=== PATIENT | female | born 1980 | race Caucasian/White ===

== ENCOUNTER → 2022-05-16 13:00 | Outpatient (CLI) | payer BC, SELFPAY ==
--- NOTE | ~2022-05-16 | MM_ITS ---
EXAMINATION: MM screening blake BI w juwan HISTORY: Screening TECHNIQUE: Craniocaudal and mediolateral oblique 3-D tomosynthesis images were obtained and synthetic 2-D images were generated. CAD analysis was submitted and interpreted. COMPARISON: 06/11/2019 BREAST PARENCHYMAL COMPOSITION: There are scattered areas of fibroglandular density. FINDINGS: There is no evidence of suspicious mass, calcification, or architectural distortion to sugg est malignancy in either breast. There has been no suspicious interval change. IMPRESSION: 1. No mammographic evidence of malignancy. 2. Recommend routine screening mammography in one year. BI-RADS Category 1: Negative Reviewed, dictated and finalized at location B. T ATTENDANT
== END ==
PROVIDERS: PCP Nurse Practitioner; Visit Provider Nurse Practitioner
DX: Z12.31 Encounter for screening mammogram for malignant neoplasm of breast (principal)
CPT/HCPCS: 77063; 77067

== ENCOUNTER 2022-06-19 08:00 | Outpatient (CLI) | payer OTHER, SELFPAY ==
--- NOTE | 2022-06-19 08:20 | ECG_ITS ---
Measurements Intervals [place] Rate: 66 P: 40 UT: 143 QRS: -20 QRSD: 114 T: 2 QT: 384 QTc: 404 Interpretive Statements SINUS RHYTHM INCOMPLETE RIGHT BUNDLE BRANCH BLOCK VOLTAGE CRITERIA FOR LVH BORDERLINE R WAVE PROGRESSION, ANTERIOR LEADS BORDERLINE T WAVE ABNORMALITY- INFERIOR LEADS BASELINE ARTIFACT- I, II, III, AVR, AVL, AVF BORDERLINE ECG NO PREVIOUS ECG AVAILABLE FOR COMPARISON Electronically Signed On 06-19-2022 8:40:37 RECONSTRUCTIVE DENTIST by Behzad Cornejo D.O.
[2022-06-19 08:57] LABS: Hematocrit 41.7 % (37.0-47.0); Hemoglobin 13.6 g/dL (12.0-15.0)
== END 2022-06-19 08:01 | disposition home or self-care (01) ==
PROVIDERS: Anesthesiology; PCP Nurse Practitioner; Visit Provider Surgery Plastic and Reconstructive Surgery
DX: Z01.810 Encounter for preprocedural cardiovascular examination (principal); Z01.812 Encounter for preprocedural laboratory examination; Z41.1 Encounter for cosmetic surgery; I45.10 Unspecified right bundle-branch block
CPT/HCPCS: 36415; 85014; 85018; 93005

== ENCOUNTER 2022-06-20 00:48 | Day surgery (SDC) | payer OTHER, SELFPAY ==
[2022-06-08 13:02] VITALS: BMI 27.4
--- NOTE | 2022-06-08 13:10 | PC.NURSE ---
Report to the Outpatient Waiting Room, entrance under the green pavilion located off [facility], at time 6:00 on date 06/20/22. Planned Procedure Time: 7:30. Time changes happen often and if your time is changed the preop area will call you the afternoon before. - You and your visitor will be asked to self-screen and do not enter if you have any COVID symptoms. - Only one visitor is requested with a max of two and NO children visitors are allowed at this time. - The patient visitor may be requested to leave or wait in car when not with patient due to distancing restrictions. - A mask is REQUIRED within the hospital. Patients may have clear liquids (water, carbonated beverages, clear teas, apple juice) until 3 hours prior to surgery (4:30) with a maximum of 20 ounces. - No food from midnight until time of surgery Take the following medications with a SIP of water the morning of surgery: SERTRALINE Medications to discontinue per physician: VITAMINS/SUPPLEMENTS Date to take last dose: 06/16/22 Please no make-up, nail turkish, hairspray, perfume, deodorant, or body powder the day of surgery. No jewelry (including any body piercings) or valuables the day of surgery, leave them at home. Please take a shower or bath the night before, or the morning of, surgery with an antibacterial soap. Wear comfortable, loose fitting clothing. - Jewelry must be removed prior to entering the operating room. Rings and piercings that are not removed may be cut off. - The hospital will not accept responsibility for valuables. - Please leave all valuables, including medications, at home the day of surgery. If you are going home after surgery, a licensed shag truck driver must drive you home. - NO public transportation without another adult if you receive anesthesia. - We recommend that an adult stay with you for 24 hours following discharge. - We also recommend that you do not drive, make important decision, drink alcoholic beverages, or take any drugs that were not prescribed by your health care provider for at least 24 hours after your discharge time. Follow any additional instructions given to you from your surgeon. If you or anyone in your household have experienced Covid symptoms in the past week, please notify your surgeon or the nurse liaison at the phone number below for possible testing. Telephone instructions given to PT - SYLVIA BONDS and asked if any additional questions and then verbalized understanding. Patient advised to call surgeon office or pre surgery nurse liaison [phone] if any additional questions.
[2022-06-20] VITALS (9 sets, daily range): BP systolic 109–139; BP diastolic 51–87; PULSE 81–98; RESP 14–18; TEMP 36.2–37.9; O2SAT 96–100
[2022-06-20] MEDS: LACTATED RINGERS 1,000 ML 30 ML IV CONT ×2 (06:36→14:10)
[2022-06-20 06:41] LABS: Urine Cotinine NEGATIVE
--- NOTE | 2022-06-20 06:41 | W.PM.PROC2 ---
Procedure Note - Detailed Date of Procedure 06/20/22 Pre-op Diagnosis skin laxity, localized adiposity Post-op Diagnosis Same Procedure Performed 1. Bilateral augmentation mastopexy with galaflex 2. Progressive tension abdominoplasty with suction lipectomy Surgeon Cal Dias MD Anesthesia General Findings Bilateral Renee Inanupira SoftTouch implants 410cc Right - REF# [id number] SN [id number] Left - REF# [id number] SN [id number] Galaflex REF# [id number] Exp 07/04/2024 Abdominal tissue removed: 2277 grams Lipoapsirate: 2700 cc Description of Procedure They are here today for for the above procedures. Previously and again today the risks, benefits, alternatives were discussed in extensive detail. I wanted them to be very realistic about the risks involved as well as expectations. We discussed aftercare and what to monitor for. I was very upfront about the risks of wound breakdown leading to loss of skin, open wounds, and need for additional procedures with permanent deformity. We discussed DVT/PE risks and management. She has elected to proceed with Galaflex Made sure answered all of their questions to their satisfaction today and consent was obtained. They were marked in the preoperative holding area with their verification. The patient was taken to the operating room placed supine on the operating table. Anesthesia was provided by anesthesiology. A Hernandez catheter was started. We cleansed the skin and 1% lidocaine and 0.25% Marcaine with epinephrine was used anesthetize as a field block. She was prepped and draped in a standard sterile 360 degree fashion. Breast Tegaderm nipple Booth were placed. A 15 blade used to make an incision just superior to the inframammary fold leaving a cusp of de-epithelized tissue at the t junction. Dissection was continued until the chest wall as identified. I incised the pectoralis major along its inferior border and completely released the inferior border leaving the medial border intact. I created a subpectoral pocket in the appropriate dimensions based on our preoperative planning for the implant. I then copiously irrigated with saline solution and verified a strict hemostasis. Next the use a triple antibiotic and Betadine containing solution to irrigate the pocket. I washed my gloves with the triple antibiotic and Betadine solution. We washed the implant immediately upon opening it with this solution and only opened it when we needed it. I used implant funnel and no-touch technique. The implant was introduced into the pocket using the funnel. Having verified positioning of the implant this was closed using 2-0 Vicryl. I tailor tacked the breast into position. Placed her in a sitting position. Verified the nipple-areolar location based on preoperative planning as well as intraoperative observations and measurements in full agreement. She was placed supine. I de-epithelialized the pedicle. I then removed the inferior central portion of the breast need making sure the implant was well protected. I elevated medial and lateral tissue flaps as well for planned closure. Galaflex was soaking in a Betadine solution. Trimmed and sutured into place with 2-0 Vicryl suture. I closed along the IMF with 2-0 Stratafix. Along the vertical with 2-0 PDS. I closed around the Nish with 3-0 strata fix. 3-0 Monocryl along the vertical. 3-0 Stratafix along the IMF. I finally closed everything with running subcuticular 4-0 Monocryl and tissue glue. Abdomen I placed the patient in a flexed position to verify the upper and lower markings would reach. I then placed supine. A thorough abdominal examination was completed. Stab incisions were made and tumescent solution infiltrated. Once adequate time was allowed for hemostasis a 5mm basket cannula was utilized to complete suction lipectomy based on S.A.F.E. technique in multiple planes and passes. There were turned to bilateral lateral decubitus p
--- NOTE | 2022-06-20 06:55 | WPDHPUPDATE1 ---
History and Physical Update Update Date/Time: 06/20/22 06:55 History and Physical has been reviewed, including an updated exam of the patient. There are NO changes in the patient's condition. Will proceed with abdominoplasty with liposuction, bilateral breast augmentation, bilateral breast mastopexy with Galaflex. Risks, benefits, and alternatives have been discussed and questions answered. Patient agrees to proceed with procedure.
--- NOTE | 2022-06-20 07:00 | WPDANESEPPF ---
Anes - Initial Pre Proc Eval Procedure: Operation Date: 06/20/22 07:30 Proposed Procedures p Abdominoplasty with Liposuction - Cal Dias MD s Bilateral Breast Augmentation - Cal Dias MD s Bilateral Breast Mastopexy - Cal Dias MD Date/Time: 06/20/22 07:00 Surgeon: Cal Dias MD Pre Op Diagnosis: skin laxity, localized adiposity Patient Data Age: 41 Gender: F Height: 1.6 m Weight: 75.1 kg Allergies Allergy/AdvReac Type Severity Reaction Status Date / Time cefaclor Allergy Unknown Rash Verified 06/08/22 12:59 Home Medications Medication Instructions Recorded Confirmed Type ascorbic acid (vitamin C) 500 mg 500 mg PO DAILY 06/08/22 06/08/22 History tablet (Vitamin C) cholecalciferol (vitamin D3) 125 125 mcg PO DAILY 06/08/22 06/08/22 History mcg (5,000 unit) tablet (Vitamin D3) sertraline 100 mg tablet 100 mg PO DAILY 06/08/22 06/08/22 History spironolactone 100 mg tablet 125 mg PO DAILY 06/08/22 06/08/22 History vitamin B complex 1 tablet PO DAILY 06/08/22 06/08/22 History zinc gluconate 100 mg tablet 100 mg PO DAILY 06/08/22 06/08/22 History Laboratory Tests 06/20/22 06:19 Cotinine Negative Patient hx anesthesia problems: none Family hx anesthesia problems: none Results Review: All pre-operative results and documents have been reviewed as part of the pre-operative evaluation. [facility] Social History Social History Years smoked: 28 Smoking status: Former smoker Tobacco type: cigarettes and e-cigarettes/vaping Smoking end date: 08/02/21 Additional smoking assessment comments: STOPPED VAPING 05/05/22 Alcohol intake: current Alcohol use details: SOCIAL - NOT WEEKLY Substance use: never Substance use type: does not use Living arrangements: with family Additional living arrangements comments: DAUGHTER Spiritual care concerns: No Anes - Eval Final PreProcedure Day of Procedure 06/20/22 07:00 Patient weight: overweight Heart: regular rate and rhythm Lungs: clear to auscultation Airway: Mallampati scale class II Neurological: alert and oriented Last oral intake: >/= 8 hours ASA classification: II Emergent: no Anesthetic plan: proceed Anesthesia type and monitoring: general ETT and standard monitoring Results Review: All pre-operative results and documents have been reviewed as part of the pre-operative evaluation. Informed Consent: The patient's anesthetic plan and its attendant risks and benefits were discussed with the patient/family/POA. Questions were solicited and answers provided to the satisfaction of the patient/family/POA.
[2022-06-20] MEDS: ceFAZolin 2 GM/D5W 50 ML 2 GM/50 ML BAG IVPB (07:29)
[2022-06-20] MEDS: TRANEXAMIC ACID 1,000MG/ISO100 1,000 MG/100 ML BAG 200 MG IVPB (07:45)
[2022-06-20] MEDS: LIDOCAINE HCL 1% PF 30 ML VIAL INFILTRATE ×2 (08:50→12:18)
[2022-06-20] MEDS: NACL 0.9% IRRIG POUR BOTTLE 900 ML, GENTAMICIN SULFATE INJ 160 MG, CLINDAMYCIN PHOS INJ... IRRIGATION (08:50)
[2022-06-20] MEDS: BUPIVACAINE/EPINEPHRINE 0.5% 30 ML VIAL INFILTRATE ×2 (08:50→12:18)
--- NOTE | 2022-06-20 09:01 | SUR.OPER ---
Implants from 's Office: Right breast: SSL-410 SN#[id number] Exp: 01-27-2027 Left breast: SSl-[id number] SN#[id number] Exp: 05-17-2025 GalaFLEX Scoffold [id number] Exp: 07-04-2024 Lot# [id number]
[2022-06-20] MEDS: LACTATED RINGERS IRRIG 1,000 ML, LIDOCAINE HCL 1% LOCAL INJ 50 ML, EPINEPHrine HCL INJ ... INFILTRATE ×3 (10:11→11:27)
[2022-06-20] MEDS: ceFAZolin SODIUM 1 GM VIAL IV PUSH (11:29)
[2022-06-20] MEDS: ONDANSETRON INJ 4 MG/2 ML VIAL IV PUSH ×2 (15:48→21:25)
[2022-06-20] MEDS: LACTATED RINGERS 1,000 ML 125 ML IV CONT (15:51)
[2022-06-20] MEDS: KETOROLAC 15 MG/ML VIAL (*BKC) IV PUSH ×2 (16:02→23:52)
--- NOTE | 2022-06-20 16:21 | OBPPTRN ---
1520 Patient transferred to post room #279 via bed. Oriented to unit, room, information board, admission packet and security measures. Patient verbalizes understanding.
[2022-06-20] MEDS: GABAPENTIN 300 MG CAPSULE PO (17:30)
[2022-06-20] MEDS: carisoprodoL (*CRX) 350 MG TABLET PO ×2 (17:31→23:51)
[2022-06-20] MEDS: MORPHINE SULFATE (*CRX) 2 MG/ML INJ IV PUSH (17:42)
[2022-06-20] MEDS: DOCUSATE SODIUM 100 MG CAPSULE PO (21:42)
[2022-06-20] MEDS: ENOXAPARIN 40 MG/0.4 ML SYRINGE SUB-Q (21:42)
[2022-06-21 00:03] VITALS: BP 99/54; PULSE 90; RESP 18; TEMP 37.7; O2SAT 96
[2022-06-21] MEDS: carisoprodoL (*CRX) 350 MG TABLET PO (05:32)
[2022-06-21] MEDS: KETOROLAC 15 MG/ML VIAL (*BKC) IV PUSH (05:33)
[2022-06-21 05:42] VITALS: BP 102/59; PULSE 91; RESP 18; TEMP 37.3; O2SAT 97
[2022-06-21 07:10] VITALS: BP 104/59; PULSE 95; RESP 18; TEMP 37.1; O2SAT 96
--- NOTE | 2022-06-21 07:50 | WPDANESPN ---
Anes - Prog Note Post-Op Date/Time: 06/21/22 07:50 Cardiovascular status: normal Respiratory status: normal Airway patency: baseline Mental status: baseline Post-Op hydration status: normal Vital Signs: Last Vital Signs Temp 37.3 C 06/21/22 05:42 Pulse 91 06/21/22 05:42 Resp 18 06/21/22 05:42 BP 102/59 L 06/21/22 05:42 Pulse Ox 97 06/21/22 05:42 O2 Del Method Room Air 06/21/22 05:42 O2 Flow Rate 6 06/20/22 14:25 Pain Score (VAS): 2 I/O: Intake & Output 06/20/22 06/20/22 06/21/22 15:59 23:59 07:59 Intake Total 750 760 600 Output Total 90 200 1100 Balance 660 560 -500 Post-procedural complaints: none Patient Feedback: Patient satisfied with anesthetic care.
--- NOTE | 2022-06-21 08:12 | WPDPN ---
Progress Note: A&P Assessment and Plan (1) Encounter for cosmetic procedure: Code(s): Z41.1 - Encounter for cosmetic surgery Status: Acute Assessment and Plan: Doing well after: 1.? Bilateral augmentation mastopexy with galaflex 2.? Progressive tension abdominoplasty with suction lipectomy Will discharge home. I will see her back. Today we had a lengthy discussion about the care. What to monitor for. What is an emergency / when to call 911 / proceed to ER. Call with any questions or concerns. Time Spent With Patient Time with patient: 15 - 25 minutes Subjective Date/time seen: 06/21/22 08:12 Interval history: Doing well after: 1.? Bilateral augmentation mastopexy with galaflex 2.? Progressive tension abdominoplasty with suction lipectomy Ambulating. Pain Controlled. No n/v. No fevers / chills. No SOB. No Chest pain. No calf tenderness. Tolerating PO. Review of Systems Review of Systems: All systems reviewed & are unremarkable except as noted in HPI and below Exam Narrative: A&O NOD Resp unlabored Bilateral breasts are soft. No signs of infection. No hematoma. No seroma. Good color / cap refill. Abdomen is soft. No signs of infection. No hematoma. No seroma. Good color / cap refill. No calf tenderness. Negative Homann's. Objective Data Vital Signs Vital Signs: Vital Signs - 24 hr 06/20/22 14:10 06/20/22 14:25 06/20/22 14:30 Temperature 36.4 C L Pulse Rate 90 93 Respiratory Rate 14 16 Blood Pressure 124/87 125/80 Pulse Oximetry 100 100 Oxygen Delivery Simple Face Mask Simple Face Mask Room Air Oxygen Flow Rate 6 6 06/20/22 14:40 06/20/22 14:55 06/20/22 15:10 Temperature Pulse Rate 90 89 89 Respiratory Rate 16 18 18 Blood Pressure 139/86 136/86 137/82 Pulse Oximetry 96 96 96 Oxygen Delivery Room Air Room Air Room Air Oxygen Flow Rate 06/20/22 16:24 06/20/22 16:24 06/20/22 21:00 Temperature 36.9 C Pulse Rate 90 Respiratory Rate 16 Blood Pressure 121/72 Pulse Oximetry 98 Oxygen Delivery Room Air Room Air Oxygen Flow Rate 06/20/22 21:00 06/20/22 23:59 06/21/22 00:03 Temperature 37.9 C H 37.7 C H Pulse Rate 98 98 90 Respiratory Rate 18 18 18 Blood Pressure 109/58 L 99/54 L Pulse Oximetry 98 98 96 Oxygen Delivery Room Air Oxygen Flow Rate 06/21/22 05:42 06/21/22 05:42 Temperature 37.3 C Pulse Rate 91 Respiratory Rate 18 Blood Pressure 102/59 L Pulse Oximetry 97 Oxygen Delivery Room Air Oxygen Flow Rate Intake/Output Intake/Output: Intake & Output 06/18/22 06/19/22 06/20/22 06/21/22 23:59 23:59 23:59 23:59 Intake Total 2110 600 Output Total 290 1100 Balance 1820 -500 Meds/Results Medications: Active Medications Generic Name Dose Route Start Last Admin Trade Name Freq PRN Reason Stop Dose Admin Carisoprodol 350 mg 06/20/22 18:00 06/21/22 05:32 Carisoprodol (*Crx) 350 Mg Tablet PO 350 mg Q6HR MATTI Administration Diazepam 5 mg 06/20/22 13:55 Diazepam (*Crx) 5 Mg Tablet PO TID PRN Anxiety Docusate Sodium 100 mg 06/20/22 21:00 06/20/22 21:42 Docusate Sodium 100 Mg Capsule PO 100 mg Q12HR MATTI Administration Enoxaparin Sodium 40 mg 06/20/22 21:00 06/20/22 21:42 Enoxaparin 40 Mg/0.4 Ml Syringe SUB-Q 40 mg DAILY@2100 [facility] Administration Gabapentin 300 mg 06/20/22 17:00 06/20/22 17:30 Gabapentin 300 Mg Capsule PO 300 mg TID MATTI Administration Lactated Ringer's 1,000 mls @ 125 mls/hr 06/20/22 13:55 06/20/22 15:51 Lr - Lactated Ringers Iv IV CONT 125 mls/hr .Q8H MATTI Administration Ketorolac Tromethamine 15 mg 06/20/22 13:55 06/21/22 05:33 Ketorolac 15 Mg/Ml Vial (*Bkc) IV PUSH 15 mg Q6H PRN Administration Pain Rated 4-6 Morphine Sulfate 2 mg 06/20/22 13:55 06/20/22 17:42 Morphine Sulfate (*Crx) 2 Mg/Ml Inj IV PUSH 2 mg Q2H PRN Administration Pain Ondansetron HCl 4 mg 0
--- NOTE | 2022-06-21 08:17 | P.DS_ITS ---
DS: Admitting Diagnosis Discharge Date 06/21/2022 Admitting Diagnosis Encounter for cosmetic surgery DS: Discharge Diagnosis Discharge Diagnosis (1) Encounter for cosmetic procedure: Code(s): Z41.1 - Encounter for cosmetic surgery Status: Acute DS: Summary Hospital Course Hospital Course: Underwent: 1.? Bilateral augmentation mastopexy with galaflex 2.? Progressive tension abdominoplasty with suction lipectomy Postoperatively has done well. Will plan for discharge home. Time Spent with Patient Time attestation: Total time spent providing and/or coordinating discharge services: Exam Narrative: A&O NOD Resp unlabored Bilateral breasts are soft. No signs of infection. No hematoma. No seroma. Good color / cap refill. Abdomen is soft. No signs of infection. No hematoma. No seroma. Good color / cap refill. No calf tenderness. Negative Homann's. Discharge Plan Discharge Patient Disposition: Home, Self-Care Discharge Instructions: POST OPERATIVE DISCHARGE INSTRUCTIONS CAL DIAS M.D. [facility] [address] [place] [address] * No driving for 24 hours after anesthesia and while you are taking pain medication. * Take all prescribed medication as directed * Diet as tolerated. * No lifting or activity that raises blood pressure for 48 hours. * Regular walking / ambulation. * May shower 24 hours after surgery. Once you shower do not take pain medication before showering as the combination of medication and heat may cause you to feel dizzy or pass out. * No pools or tubs for 2 weeks. * Slowly stand up straight as tolerated. * No straining or lifting more than 20 pounds. * If no bowel movement within 24 hours may use laxative. * Call with any questions or concerns. * Dressing Care: Continue abdominal binder / foam 23 hours per day. If you have any questions or concerns, please call the office . If it is after hours you will be directed to the educational recruiter exchange. Shortness of breath, chest pain, or other medical emergency dial 911 / proceed to the Emergency Room. Stand Alone Forms: General Discharge Instructions Follow-up/Referrals: Cal Dias MD [Physician] - 1 Week Discharge Medications: Continued spironolactone 100 mg Tablet 125 mg PO DAILY sertraline 100 mg Tablet 100 mg PO DAILY zinc gluconate 100 mg Tablet 100 mg PO DAILY ascorbic acid (vitamin C) [Vitamin C] 500 mg Tablet 500 mg PO DAILY vitamin B complex Tablet 1 tablet PO DAILY cholecalciferol (vitamin D3) [Vitamin D3] 125 mcg (5,000 unit) Tablet 125 mcg PO DAILY
--- NOTE | 2022-06-21 08:33 | PC.NURSE ---
On 06/21/22, the student, Ryan Betancourt, provided care and completed [facility] documentation on this patient. I have reviewed the student's documentation and agree with the findings.
[2022-06-21] MEDS: DOCUSATE SODIUM 100 MG CAPSULE PO (08:51)
[2022-06-21] MEDS: SERTRALINE HCL 50 MG TABLET 100 MG PO (08:51)
[2022-06-21] MEDS: SPIRONOLACTONE 125 MG PO (08:52)
[2022-06-21] MEDS: GABAPENTIN 300 MG CAPSULE PO (08:53)
[2022-06-21] MEDS: oxyCODONE/ACETAMINOPHEN (*CRX) 5-325 MG TABLET PO (08:53)
== END 2022-06-21 10:16 | disposition home or self-care (01) ==
LOC: ANHSURGERY 13:55 → ANHOB2 15:04
PROVIDERS: PCP Nurse Practitioner; Visit Provider Surgery Plastic and Reconstructive Surgery
PROC: (CPT 19316; principal; 2022-06-20 07:30)
PROC: (CPT 19316; 2022-06-20 07:30)
PROC: (CPT 19316; 2022-06-20 07:30)
DX: Z41.1 Encounter for cosmetic surgery (principal); L57.4 Cutis laxa senilis; E65 Localized adiposity; Z87.891 Personal history of nicotine dependence; Z79.899 Other long term (current) drug therapy
CPT/HCPCS: 19316; 19325; 15777 ×2; 15877; 15830; 15847; 80307; 99199; A9270; J0171; J0690; J1100; J1170; J1580; J1650; J1885; J2250; J2270; J2405; J2704; J3010; J7120

== ENCOUNTER 2025-01-09 03:24 | Day surgery (SDC) | payer OTHER, SELFPAY ==
[2024-12-31 13:31] VITALS: BMI 26.4
--- NOTE | 2024-12-31 13:40 | PC.NURSE ---
Report to the Outpatient Waiting Room, entrance under the green pavilion located off [facility], at time _0830_ on date _06-16-2711_. Planned Procedure Time: _1030_.? Time changes happen often and if your time is changed the preop area will call you the afternoon before. - You and your visitor will be asked to self-screen and do not enter if you have any COVID symptoms. Please call surgeon if you need to reschedule. - A mask is optional within the hospital at this time. Patients may have clear liquids (water, carbonated beverages, clear teas, apple juice) until 3 hours prior to surgery with a maximum of 20 ounces. - No food from midnight until time of surgery and no smoking, or chewing tobacco (or any form of nicotine). No chewing gum, candy or mints. Take only the following medications with a SIP of water on the morning of surgery: __Sertraline and Slynd DO NOT STOP ANY OF YOUR OTHER PRESCRIPTION MEDICATIONS PRIOR TO SURGERY EXCEPT THE FOLLOWING Hold all vitamins and supplements for 3 days per anesthesiologist. Medications to discontinue per physician Date to take last [id number]__[id number]___ Please no make-up, nail zimbabwean, hairspray, perfume, deodorant, or body powder the day of surgery.? No jewelry (including any body piercings) or valuables the day of surgery, leave them at home.? Please take a shower or bath the night before, or the morning of, surgery with an antibacterial soap.? Wear comfortable, loose fitting clothing.? - Jewelry must be removed prior to entering the operating room.? Rings and piercings that are not removed may be cut off. - The hospital will not accept responsibility for valuables.? - Please leave all valuables, including medications, at home the day of surgery. If you are going home after surgery, a licensed commercial collections driver must drive you home.? - NO public transportation without another adult if you receive anesthesia. - We recommend that an adult stay with you for 24 hours following discharge. - We also recommend that you do not drive, make important decision, drink alcoholic beverages, or take any drugs that were not prescribed by your health care provider for at least 24 hours after your discharge time. Follow any additional instructions given to you from your surgeon. Telephone instructions given to __Amber___and asked if any additional questions and then verbalized understanding. Patient advised to call surgeon office or pre surgery nurse liaison [phone] if any additional questions.
[2025-01-09] VITALS (8 sets, daily range): BP systolic 107–130; BP diastolic 43–83; PULSE 59–87; RESP 12–16; TEMP 36.2–36.5; O2SAT 99–100; BMI 26.6
--- OUTSIDE RECORDS SUMMARY | 2025-01-09 03:26 | XMS_ITS | Encounter Summary ---
Author Organization [employer] Address 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
--- OUTSIDE RECORDS SUMMARY | 2025-01-09 03:26 | XMS_ITS | Encounter Summary ---
Author Organization [employer] Address 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
--- OUTSIDE RECORDS SUMMARY | 2025-01-09 03:26 | XMS_ITS | Clinical Summary ---
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 Gender Identity Not on file Sexual Orientation Not on file Plan of Treatment Health Maintenance Due Date Last Done Comments HPV VACCINES (1 - 3-dose series) 09/22/1994 DTAP/TDAP/TD VACCINES (1 - Tdap) 09/22/1998 HEPATITIS B VACCINES (1 of 3 - 19+ 3-dose series) 09/03 HPV/Cotest (21-29) 09/22/2000 CERVICAL CANCER SCREENING 09/22/2009 HPV/Cotest (30-65) 09/22/2009 PAP SMEAR 09/22/2009 BREAST CANCER SCREENING 2019 COLORECTAL SCREENING 09/22/2024 Colorectal Cancer Screening 09/22/2024 FIT-DNA Q 3 years 09/22/2024 FIT/FOBT Q 1 year 09/22/2024 Flex Sig/CT Colonography Q 5 years 09/22/2024 INFLUENZA VACCINE (#1) 2025 Insurance [facility] [id number] Care Teams Dye Blender Relationship Specialty Start Date End Date Jewel Rubin MD [address] [place] [phone] PCP - General 10/07/02
--- OUTSIDE RECORDS SUMMARY | 2025-01-09 03:26 | XMS_ITS | Encounter Summary ---
Author Organization [facility] Address 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
--- OUTSIDE RECORDS SUMMARY | 2025-01-09 03:26 | XMS_ITS ---
Author Organization Unknown ENCOUNTERS Encounter Performer Location Date Diagnosis Diagnosis Status Outpatient [facility] [address] [place] [id number] KIP Outpatient [facility] [address] [place] [address] [id number] KIP *Note: Encounters from your own facility or health system may be excluded. Allergies, Adverse Reactions, Alerts Allergen Type Severity Identification Date cefaclor drug allergy 3 [id number] Medications Name Date Quantity Days Supplied GPI Number
--- OUTSIDE RECORDS SUMMARY | 2025-01-09 03:26 | XMS_ITS | Clinical Summary ---
Author Organization [facility] [address] [facility] Address [address] [place] [address] Care Team Providers Care Stitchdown Thread Laster Name Role Phone Unavailable Primary Care Provider Unavailabl e Allergies Active Allergy Reactions Criticality Noted Date Comments Cefaclor Rash Medium 07/14/2022 Social History Tobacco Use Types Packs/Day Years Used Date Smoking Tobacco: Never Assessed Personal Safety Answer Date Recorded Getting School Help Needed Not on file 08/18 Comments Unknown Sex and Gender Information Value Date Recorded Sex Assigned at Not on file 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 Gender Identity Not on file Sexual Orientation Not on file Plan of Treatment Health Maintenance Due Date Last Done Comments Breast Cancer Screening-Mammogram 1979 Cervical Cancer Screening 1979 Colon Cancer Screening-Colonoscopy 1979 Depression Screening 1979 Hepatitis C Screening 1979 DTaP/Tdap/Td Vaccine (1 - Tdap) 09/22/1990 Varicella Vaccines (1 of 2 - 13+ 2-dose series) 09/22/1992 Hepatitis B Screening 09/22/1997 Regular Well Visit/Exam 18-64 09/22/1997 HPV Vaccines (1 - 3-dose SCD M series) 09/22/2006 Covid-19 Vaccine ( - 2023-2 5 season) 2024 05/06/2021, 08/07/2020 Influenza Vaccine (#1) 2025 Pneumococcal vaccine <65 Aged Out No longer eligible based on patient's age to complete this topic Insurance [facility]
[2025-01-09] MEDS: KETOROLAC 15 MG/ML VIAL (*BKC) IV PUSH (08:50)
[2025-01-09] MEDS: ACETAMINOPHEN 500 MG TABLET 1000 MG PO (08:50)
--- NOTE | 2025-01-09 09:46 | WPDANESEPPF ---
Anes - Initial Pre Proc Eval Procedure: Operation Date: 01/09/25 10:30 Proposed Procedures p Laparoscopic Bilateral Salpingectomy, Hysteroscopy with Endometrial Ablation - Joel Cano MD Date/Time: 01/09/25 09:46 Surgeon: Joel Cano MD Pre Op Diagnosis: abn uterine bleeding Patient Data Age: 44 Gender: F Height: 1.6 m Weight: 68.4 kg Last Vital Signs Temp 36.5 C 01/09/25 08:01 Pulse 87 01/09/25 08:01 Resp 14 01/09/25 08:01 BP 110/65 01/09/25 08:01 Pulse Ox 100 01/09/25 08:01 Allergies Allergy/AdvReac Type Severity Reaction Status Date / Time cefaclor Allergy Unknown Rash Verified 01/09/25 09:11 Home Medications ?Medication ?Instructions ?Recorded ?Confirmed ?Type ascorbic acid (vitamin C) 500 mg 500 mg PO DAILY 06/08/22 01/09/25 History tablet (Vitamin C) cholecalciferol (vitamin D3) 125 125 mcg PO DAILY 06/08/22 01/09/25 History mcg (5,000 unit) tablet (Vitamin D3) sertraline 100 mg tablet 100 mg PO DAILY 06/08/22 01/09/25 History vitamin B complex 1 tablet PO DAILY 06/08/22 01/09/25 History zinc gluconate 100 mg tablet 100 mg PO DAILY 06/08/22 01/09/25 History drospirenone (contraceptive) 4 mg 1 tablet PO DAILY 12/31/24 01/09/25 History (28) tablet (Slynd) Patient hx anesthesia problems: none Family hx anesthesia problems: none Results Review: All pre-operative results and documents have been reviewed as part of the pre-operative evaluation. [facility] Past Medical History Medical History (Updated 01/09/25 @ 10:36 by Aime Ardon DO) Depression Anxiety Social History Social History Years smoked: 20 Smoking status: Former smoker Tobacco type: cigarettes and e-cigarettes/vaping Smoking end date: 01/01/20 Additional smoking assessment comments: Currently vaping. Alcohol intake: current Alcohol use details: SOCIAL - NOT WEEKLY Substance use: never Substance use type: does not use Living arrangements: with family Additional living arrangements comments: DAUGHTER Spiritual care concerns: No Anes - Eval Final PreProcedure Day of Procedure 01/09/25 09:46 Patient weight: overweight Heart: regular rate and rhythm Lungs: clear to auscultation Airway: Mallampati scale class II Neurological: alert and oriented Last oral intake: >/= 8 hours ASA classification: II Emergent: no Anesthetic plan: proceed Anesthesia type and monitoring: general ETT and standard monitoring Results Review: All pre-operative results and documents have been reviewed as part of the pre-operative evaluation. Informed Consent: The patient's anesthetic plan and its attendant risks and benefits were discussed with the patient/family/POA. Questions were solicited and answers provided to the satisfaction of the patient/family/POA.
--- NOTE | 2025-01-09 10:29 | PM.IMHP ---
H&P: HPI History of Present Illness Date/Time: 01/09/25 10:29 Chief Complaint: Heavy vaginal bleeding Narrative: 44-year-old female presents for follow-up on menorrhagia. Patient has severe menorrhagia of the profoundly affects her quality of life and activities of daily living. We discussed treatment options. Patient would like to have endometrial ablation. We agreed to that. I described the procedure in detail. We reviewed animated illustration. Patient will also required any laparoscopic salpingectomy. She understands this and agrees. The patient understands the procedure. The procedure was described to the patient in great detail. the patient also understands the risks. The risks were also explained in detail. She understands that injuries May occur during surgery. She understands these injuries can result in hospitalization, more surgery, and severe illness. She understands there is risk of hemorrhage and infection. Review of Systems Review of Systems: All systems reviewed & are unremarkable except as noted in HPI and below Constitutional: Constitutional: Denies chills, Denies fatigue, Denies fever(s) and Denies weakness Eyes: Eyes: Denies blurry vision, Denies change in vision, Denies loss of peripheral vision, Denies loss of vision, Denies other visual disturbances and Denies eye pain ENT: Denies vertigo, Denies dizziness, Denies hearing loss, Denies mouth pain, Denies nasal obstruction, Denies neck mass and Denies neck pain Cardiovascular: Cardiovascular: Denies chest pain, Denies diaphoresis, Denies syncope, Denies leg edema and Denies dyspnea Respiratory: Respiratory: Denies chest congestion, Denies cough, Denies hemoptysis, Denies dyspnea and Denies wheezing Gastrointestinal: Gastrointestinal: Denies abdominal pain, Denies constipation, Denies diarrhea, Denies nausea and Denies vomiting Genitourinary: Genitourinary: Denies hematuria, Denies change in libido, Denies nocturia, Denies genital lesions, Denies flank pain and Denies urinary urgency Musculoskeletal: Musculoskeletal: Denies abnormal gait, Denies back pain, Denies myalgias, Denies arthralgias, Denies joint swelling, Denies muscle weakness and Denies neck pain Integumentary/Breasts: Skin/Breast: Denies swelling, Denies breast pain, Denies breast mass, Denies dry skin, Denies nipple discharge, Denies unusual bruising and Denies jaundice Neurologic: Denies Neuro-related abnormal movements, Denies Abnormal speech present, Denies abnormal gait, Denies behavioral changes, Denies confusion, Denies vertigo, Denies dizziness, Denies syncope, Denies loss of vision, Denies memory loss, Denies convulsions and Denies weakness Psychiatric: Psychiatric: Denies abnormal sleep pattern, Denies behavioral changes, Denies change in libido, Denies confusion, Denies depression, Denies anhedonia and Denies memory loss Endocrine: Endocrine: Reports no additional endocrine complaints, Denies change in libido and Denies fatigue Hematologic/Lymphatic: Hematologic/Lymphatic: Reports no additional hematologic/lymphatic complaints Allergic/Immunologic: Allergic/Immunologic: Reports no additional allergic/immunologic complaints and Denies wheezing PMFSH Social History Social History Years smoked: 20 Smoking status: Former smoker Tobacco type: cigarettes and e-cigarettes/vaping Smoking end date: 01/01/20 Additional smoking assessment comments: Currently vaping. Alcohol intake: current Alcohol use details: SOCIAL - NOT WEEKLY Substance use: never Substance use type: does not use Living arrangements: with family Additional living arrangements comments: DAUGHTER Spiritual care concerns: No Meds Home Medications and Allergies Home Medications ?Medication ?Instructions ?Recorded ?Confirmed ?Type ascorbic acid (vitamin C) 500 mg 500 mg PO DAILY 06/08/22 01/09/25 History tablet (Vitamin C) cholecalciferol (vitamin D3) 125 125 mcg PO DAILY 06/08/22 01/09/25 History mcg (5,000 unit) tablet (Vitamin D3) sertraline 100 mg tablet 100 mg PO DAILY 06/08/22 01/09/25 History vitamin B complex 1 tablet PO DAILY 06/08/22 01/09/25 History zinc gluconate 100 mg tablet 100 mg PO DAILY 06/08/22 01/09/25 History drospirenone (contraceptive) 4 mg 1 tablet PO DAILY 12/31/24 01/09/25 History (28) tablet (Slynd) Allergies Allergy/AdvReac Type Severity Reaction Status Date / Time cefaclor Allergy Unknown Rash Verified 01/09/25 09:11 Vital Signs Vital Signs - 24 hr 01/09/25 08:01 Temperature 97.7 F Pulse Rate 87 Respiratory Rate 14 Blood Pressure 110/65 Pulse Oximetry 100 Exam Const: General: cooperative, healthy appearing, comfortable and no acute distress Orientation/consciousness: oriented to person, oriented to place and oriented to time HENMT: Head: normal to inspection Ears: external ears normal Face/Nose/Sinus: Normal external nose present and normal facial exam Face and sinus: normal facial exam Eyes: General: appearance normal, both eyes and all related structures Neck: Neck: normal visual inspection, trachea midline and supple Resp: Auscultation: clear to auscultation bilaterally, no crackles, no rales, no rhonchi and no wheezes Cardio: Rate: regular rate Rhythm: regular rhythm Heart sounds: no click, no murmurs and no rubs GI: GI Palp: No abdominal tenderness, No Soft to palpation, No Tenderness to palpation present (GI) and No Palpable mass present Auscultation: normal bowel sounds Skin: General skin exam: normal color and no rashes or lesions noted Neuro: General: oriented to person, oriented to place and oriented to time Extrem: General: normal to inspection, no joint enlargement, no clubbing, cyanosis or edema, no pedal edema and no calf tenderness Psych: Appearance: grossly normal Mental Status: mental status grossly normal Speech and movement: Normal speech and movement present Assessment and Plan Assessment and plan (1) Menorrhagia: Code(s): N92.0 - Excessive and frequent menstruation with regular cycle Status: Acute Plan This patient is a 44-year-old female with severe menorrhagia. We have agreed to perform endometrial ablation with hysteroscopy and D&C, along with laparoscopic this bilateral salpingectomy. She understands the risks, benefits, and alternatives. She has completed informed consent process and is ready to proceed.
--- NOTE | 2025-01-09 10:31 | WPDHPUPDATE1 ---
History and Physical Update Update Date/Time: 01/09/25 10:31 History and Physical has been reviewed, including an updated exam of the patient. There are NO changes in the patient's condition. Risks, benefits, and alternatives have been discussed and questions answered. Patient agrees to proceed with procedure.
--- NOTE | 2025-01-09 11:46 | S_PTH ---
PATIENT: Yoko Guevara LOC: [facility] U#:[id number] AGE/SX: 44/F ROOM: RE01/09/[address]: Joel Cano MD : 1980 BED: DIS: 01/09/2025 SPEC #: [id number] RECD: 01/09/25 13:10 STATUS: CHRIS REMarco A #: [id number] ATUL: 01/09/25 11:[address]: Joel Cano DEPT: [facility] Surgical RECD BY: Jamar Coleman ENTERED: 01/09/25 13:11 SP TYPE: Surgical OTHR DR: Jessica Brenner, WEBSPHERE ARCHITECT Tissues: A - Fallopian Tube Bilateral B - Endometrial Curettings Procedures: Gross and Microscopic Level 2 Hematoxylin and Eosin Stain Gross and Microscopic Level 4
[2025-01-09] MEDS: LACTATED RINGERS 1,000 ML 30 ML IV CONT ×2 (12:00→12:01)
--- NOTE | 2025-01-09 12:03 | P.OP_ITS ---
Procedure Note - Detailed Date of Procedure 01/09/25 Pre-op Diagnosis abn uterine bleeding Post-op Diagnosis Same Procedure Performed Laparoscopic bilateral salpingectomy with endometrial ablation and hysteroscopy. Surgeon Joel Cano MD Anesthesia General Indications Menorrhagia, female sterilization Findings Intra-abdominal adhesions between omentum and anterior abdominal wall, left fallopian tube adherent to left pelvic sidewall. Normal-appearing ovaries and fallopian tubes. Normal vulva, vagina, cervix. Normal endometrium. Description of Procedure Patient was taken the operating room. She has prepped draped in the dorsal lithotomy position after induction of general anesthesia. A 5 mm abdominal incision was made in left upper quadrant of the abdomen with scalpel. A 5 mm trocars inserted the intra-abdominal cavity under direct visualization of the scope. Pneumoperitoneum was achieved. A 5 mm periumbilical incision was made using a scalpel on the abdominal scan. A 5 mm trocar was inserted the intra- abdominal cavity under visualization of the scope. A 5 mm incision made left lower quadrant of the abdomen. A 5 mm trocar was inserted the intra-abdominal cavity and direct visualization of the scope. The bilateral fallopian tubes were removed. The paratubal tissue in the area of the uterus was grasped with the LigaSure cautery and transected after being cauterized. The paratubal tissue from the ovary to the uterine cornu was cauterized and transected with LigaSure cautery. This was all done in a bilateral fashion. The tube was transected at the area of the uterine cornua and the tubes was removed through the 5 mm trocar site. The pneumoperitoneum was reduced. The trocars were removed. The skin was closed with subcuticular 4 Monocryl and covered with Dermabond. Our attention was then turned to the endometrial ablation portion of the procedure. A speculum was placed in the vagina. The cervix was grasped with a tenaculum. The cervix was dilated to approximately 8 mm with Gallo dilators. The hysteroscope was inserted. And the below findings were noted. All of the intrauterine surfaces were curettaged with a medium-size curette and the specimens were collected. Measurements of the cervix were taken using the uterine sound and the hysteroscope. The intrauterine cavity measurements were entered into the handpiece. The device was inserted into the intrauterine cavity and the array was expanded. The balloon cuff was inflated. When an adequate seal was formed the safety and energy cycles were initiated and completed. The array was collapsed, the balloon was deflated. The insert was withdrawn. The hysteroscope was reinserted and a well desiccated intrauterine cavity was observed. The patient was taken recovery room stable condition. Sponge lap and needle counts were correct x2. She tolerated the procedure well. Pathology Yes Complications No immediate complications Condition Stable Disposition PACU
== END 2025-01-09 13:53 | disposition home or self-care (01) ==
PROVIDERS: PCP Nurse Practitioner; Visit Provider Obstetrics & Gynecology
PROC: 0UDB8ZZ Extraction of Endometrium, Via Natural or Artificial Opening Endoscopic (ICD-10-PCS; CPT 58558; principal; 2025-01-09 10:30)
DX: N92.0 Excessive and frequent menstruation with regular cycle (principal); K66.0 Peritoneal adhesions (postprocedural) (postinfection); G89.18 Other acute postprocedural pain; F17.290 Nicotine dependence, other tobacco product, uncomplicated; F41.9 Anxiety disorder, unspecified; F32.A Depression, unspecified
CPT/HCPCS: 58661; 58563; 88302; 88305; A9270; J1100; J1885; J2003; J2250; J2405; J2704; J3010; J7030; J7120